=== PATIENT | male | born 1940 | race Caucasian/White ===

== ENCOUNTER 2016-02-17 17:38 | Inpatient (IN) | payer MEDICARE, OTHER ==
[2016-02-17] MEDS ORDERED: ALBUTEROL/IPRATROPIUM 2.5/0.5 MG 3 ML/EACH DOSE ONE (17:54)
[2016-02-17 18:09] LABS: VENOUS BLOOD GAS BASE EXCESS 2.9 mmol/L (-2.0-2.0); VENOUS BLOOD GAS HCO3 27.5 mmol/L (22.0-27.0)
[2016-02-17] MEDS ORDERED: LORAZEPAM 2 MG/ML 1ML SDV ONE ×2 (18:25→19:12)
[2016-02-17 18:28] LABS: ABSOLUTE NEUTROPHIL COUNT 5.8 K/mm3 (1.8-7.7); BASO % 0.4 % (0.2-1.0); EOS % 0.4 % (0.9-2.9); HEMATOCRIT 44.3 % (32.0-52.0); HEMOGLOBIN 13.9 gm/l (14.0-18.0); IMM NEUT% 0.2 % (0-1); LYMPH # 1.3 (1.0-4.8); LYMPH % 15.9 % (15-45); MEAN CELL VOLUME 91.9 fl (80.0-94.0); MEAN CORPUSCULAR HEMOGLOBIN 28.8 pg (27.0-31.0); MEAN CORPUSCULAR HGB CONC 31.4 g/dl (33.0-37.0); MEAN PLATELET VOLUME 9.6 fl (7.4-10.4); MONO # 0.9 (0.0-0.8); MONO % 11.6 % (4-12); NEUT % 71.5 % (43-75); PLATELET COUNT 179 K/mm3 (130-400); RED CELL DISTRIBUTION WIDTH 12.9 % (11.5-14.5)
[2016-02-17 18:29] LABS: ALB/GLOB RATIO 1.5 (>1.0); ALBUMIN 4.3 gm/dL (3.5-5.7); CALCIUM 9.2 mg/dL (8.6-10.3); MAGNESIUM 1.7 mg/dL (1.9-2.7)
[2016-02-17 18:31] LABS: TROPONIN I < 0.01 ng/ml (0.0-0.06)
[2016-02-17] MEDS ORDERED: METHYLPRED SOD SUCCINATE 125 MG VIAL ONE (18:51)
[2016-02-17] MEDS ORDERED: ALBUTEROL NEB 2.5 MG/3 ML VIAL.NEB NEB ONE (19:05)
[2016-02-17] MEDS ORDERED: MAGNESIUM SULFATE 1 G/100 ML 100 ML IV ONE ×2 (19:21→19:28)
[2016-02-17] MEDS ORDERED: PIPERACILLIN-TAZO PREMIX BAG 50 ML IV ONE (19:28)
[2016-02-17] MEDS ORDERED: FENTANYL 100 MCG/2 ML VIAL ONE (19:34)
--- NOTE | 2016-02-17 19:39 | RAD ---
CHEST-AP BEDSIDE COMPARISON: None HISTORY: Shortness of breath, fever and chills for 2 days, worsening today FINDINGS: Views: Frontal chest. Lungs: Asymmetric density in the lungs, greater on the right than the left, consisting of mixed interstitial and airspace pattern. In the left lung base, there are some scattered interstitial densities. Heart and vessels: Normal Trachea and bronchi: Normal Mediastinum and konrad: Normal Costophrenic sulci: Normal Chest wall and bones: Normal Upper abdomen: Normal. IMPRESSION: Bilateral infiltrates, greater on the right than the left.
[2016-02-17] MEDS ORDERED: VANCOMYCIN HCL 1.5 G in SODIUM CHLORIDE 0.9% 500 ML IV ONE (19:45)
[2016-02-17] MEDS ORDERED: ACETAMINOPHEN 650 MG SUP PR ONE (20:02)
[2016-02-17] MEDS ORDERED: ACETAMINOPHEN 325 MG SUP PR ONE (20:02)
[2016-02-17] MEDS ORDERED: MAGNESIUM HYDROXIDE 30 ML UDCUP PO PRN (20:15)
[2016-02-17] MEDS ORDERED: MENTHOL/CETYLPYRD 1 EACH LOZENGE PO PRN (20:15)
[2016-02-17] MEDS ORDERED: BISACODYL 10 MG SUP PR PRN (20:15)
[2016-02-17] MEDS ORDERED: VANCOMYCIN HCL 0 G in SODIUM CHLORIDE 0.9% 275 ML IV SCH (20:15)
[2016-02-17] MEDS ORDERED: BISACODYL 5 MG TABLET.EC PO PRN (20:15)
[2016-02-17] MEDS ORDERED: BLISTEX LIPSTICK 1 EACH TP PRN (20:15)
[2016-02-17 20:29] LABS: URINE BILIRUBIN NEGATIVE (NEGATIVE); URINE BLOOD TRACE (NEGATIVE); URINE GLUCOSE (UA) NEGATIVE (NEGATIVE); URINE LEUKOCYTE ESTERASE NEGATIVE (NEGATIVE); URINE NITRITE NEGATIVE (NEGATIVE); URINE PROTEIN TRACE (NEGATIVE); URINE UROBILINOGEN NORMAL (0-1 mg/dl)
[2016-02-17 20:34] LABS: URINE APPEARANCE SL CLOUDY; URINE COLOR YELLOW
[2016-02-17 20:43] LABS: URINE RBC 0-2 /hpf
[2016-02-17 20:55] LABS: URINE EPITHELIAL CELLS 0 /hpf; URINE WBC 0-2 /hpf
[2016-02-17 20:56] VITALS: BMI 34.0
[2016-02-17 20:56] LABS: URINE AMORPHOUS SEDIMENT MODERATE; URINE BACTERIA 0
[2016-02-17] MEDS: DOCUSATE SODIUM 100 MG CAPSULE PO SCH (21:18)
[2016-02-17] MEDS: ALBUTEROL/IPRATROPIUM 2.5/0.5 MG 3 ML/EACH DOSE IH SCH (21:25)
[2016-02-17] MEDS: AZITHROMYCIN 500 MG in SODIUM CHLORIDE 0.9% 250 ML IV SCH (22:19)
[2016-02-17] MEDS: ENOXAPARIN SODIUM 40 MG/0.4 ML SYRINGE SUB-Q SCH (22:34)
[2016-02-17] MEDS ORDERED: ACETAMINOPHEN 650 MG SUP PR PRN (22:38)
[2016-02-17] MEDS ORDERED: LORAZEPAM 2 MG/ML 1ML SDV IV PRN (22:40)
[2016-02-17] MEDS ORDERED: PUMP TUBING ONE (22:44)
[2016-02-17] MEDS ORDERED: PANTOPRAZOLE SODIUM 40 MG VIAL IV SCH (22:45)
[2016-02-17] MEDS: D5 1/2NS with 20 mEq KCL 1,000 ML IV SCH (22:56)
[2016-02-17] MEDS: CEFTRIAXONE 1 GRAM DUPLEX 1 G in Premix (D5W) 50 ml 1 EACH IV SCH (23:01)
[2016-02-18] MEDS ORDERED: PIPERACILLIN-TAZO PREMIX BAG 3.375 G in Premix (D5W) 50 ml 1 EACH IV SCH (01:30)
[2016-02-18] MEDS: METHYLPRED SOD SUCCINATE 125 MG VIAL IV SCH ×3 (02:16→19:55)
[2016-02-18 06:06] LABS: CALCIUM 8.2 mg/dL (8.6-10.3); MAGNESIUM 2.1 mg/dL (1.9-2.7)
--- NOTE | 2016-02-18 06:36 | HP ---
Emiliano [place] [id number] CHIEF COMPLAINT: Shortness of breath. HISTORY OF PRESENT ILLNESS: Patient is a 75-year-old male with advanced chronic obstructive pulmonary disease on home oxygen therapy and chronic steroid therapy who presented to [facility] Emergency Department by ambulance with a two day history of cough, fever, malaise, and dyspnea. His symptoms have progressed to the point that he sought medical attention. In the emergency department, he was stabilized. On positive pressure ventilation in the field and treated with Bi-PAP. I do not have a room saturation, but he was 93% on Bi-PAP when he arrived and tachycardic with a heart rate up to 131 beats per minute, tachypneic with a respiratory rate up to 47 breaths were minute, and febrile with a temperature up to 103. Workup showed evidence of pneumonia. He was referred to the hospitalist service. He was admitted to the intensive care unit due to concerns about his need for Bi-PAP therapy. The patient was sedated in the emergency department with lorazepam and Fentanyl. History is obtained from his daughter as the patient is not able to give much history due to his sedation and tachypnea. His daughter reports no documented fever at home and that his upper respiratory symptoms began with congestion and cough about two days ago. There has been no reports of any chest pains or palpitations. No nausea, vomiting, abdominal pain, diarrhea, or constipation. No headaches, fainting, blackouts, or seizures. No urinary complaints. No confusion. REVIEW OF SYSTEMS: Otherwise negative. PAST MEDICAL HISTORY: Significant for a prolonged hospitalization approximately 6 months ago at the [facility]. It is unclear, but he may have been on a ventilator. It sounds like he was hospitalized for 4 to 6 weeks. His daughter reports he has a history of a hiatal hernia and prostate cancer in remission. He has had advanced chronic obstructive pulmonary disease on chronic prednisone therapy and oxygen, but does not have a nebulizer at home. He has not had a follow up with a doctor since his discharge from the [facility] about six months ago, but has an appointment scheduled in the next month. His family denies any history of coronary artery disease or congestive heart failure. PAST SURGICAL HISTORY: Significant for some type of hernia repair. He also had a radical prostatectomy. ALLERGIES: He has no known drug allergies. CURRENT MEDICATIONS: Consist of: 1. Prednisone 5 mg by mouth every morning. 2. Trazodone 50 mg at bedtime as needed. 3. Spiriva 18 mcg inhaled daily. 4. Vasotec 20 mg by mouth daily. 5. Albuterol HFA inhaler 1 to 2 puffs every 4 hours as needed for wheezing. 6. Ranitidine 150 mg by mouth twice daily. 7. Symbicort 160/4.5 mcg inhaler two puffs inhaled twice daily. 8. Potassium chloride 10 mEq once daily. FAMILY HISTORY: Unknown. SOCIAL HISTORY: Patient lives with his , his daughter, and his son-in-law. He is generally independent with his activities of daily living. They moved from [place] about six months ago to be closer to family. He is a former smoker of approximately 40 pack years, he quit about 20 years ago. There is no history of alcohol or illicit drug use. He has four daughters. He has no primary care provider except the [facility] in [place]. Code status is documented on a POLST form which has no name. I reviewed the POLST orders with the patient's daughter who reports that based on discussion she has had with her father and family that he would like limited additional interventions and would not want to be on life support. He would not want to be fed with a feeding tube, and he would not resuscitation if he has a cardiac arrest. PHYSICAL EXAMINATION: VITAL SIGNS: Currently show a temperature down to 101.6, pulse down to 97, blood pressure 105/60, respirations 18, oxygen saturations are 94% on Venturi mask at 50% FIO2. Body mass index 34, weight is 107.6 kg. GENERAL: This is an obese male in severe respiratory distress. HEENT: Moist pink oral mucosa. NECK: Supple without lymphadenopathy, thyromegaly, or jugular venous distention. LUNGS: Diminished throughout with some bibasilar rhonchi and occasional wheezing. CARDIOVASCULAR: Reveals a regular tachycardia. No murmur. ABDOMEN: Obese, soft, nontender, nondistended with positive bowel sounds. EXTREMITIES: Show no peripheral edema. Dorsalis pedis pulses are 2+ bilaterally and equal. DIAGNOSTICS: Chest x-ray shows evidence of bilateral infiltrates, right greater than left, normal cardiac silhouette. LABORATORY STUDIES: CBC shows a white count of 8.1, hemoglobin of 13.9, and a platelet count of 179,000, normal differential. Lactate 0.9. Venous pH 7.43. Chemistry profile shows sodium of 130, potassium 4.4, carbon dioxide 28, BUN 14, creatinine 0.8, glucose 98, magnesium was 1.7 and he got some magnesium replacement in the emergency department. Cardiac enzymes are negative. Liver function tests are normal. Brain type natiuretic peptide is 9. Urine is slightly concentrated with a specific gravity of 1.020. Micro exam is unremarkable. Influenza serologies are negative. ASSESSMENT: The patient has acute respiratory failure on top of chronic respiratory failure with bacterial pneumonia. Community acquired organism unknown. He has a history of severe chronic obstructive pulmonary disease. He has gastroesophageal reflux disease which is stable and chronic essential hypertension which is stable. Initially he was treated with Zosyn and vancomycin in the emergency department as his initial history was that he had been recently hospitalized, but based on his hospitalization six months ago, I think he meets criteria for community acquired pneumonia and he will be treated with Rocephin and Zithromax. He has been admitted to the intensive care because of his need for Bi-PAP. He will be given Ativan if needed for sedation. Venous thromboembolism risk is moderate. Lovenox is prescribed for prophylaxis. Will place him on Protonix for gastritis prophylaxis and he is on high dose steroids in the form of Solu-Medrol. He will be given Combivent scheduled nebulizer treatments and albuterol as needed. He will be placed on maintenance fluids and will follow his electrolytes. Further treatment and recommendations will depend on his hospital course. JOB: [id number] CC: [facility]
[2016-02-18] MEDS: D5 1/2NS with 20 mEq KCL 1,000 ML IV SCH (07:17)
[2016-02-18] MEDS ORDERED: VANCOMYCIN HCL 1.25 G in SODIUM CHLORIDE 0.9% 250 ML IV SCH (08:00)
[2016-02-18] MEDS: ALBUTEROL/IPRATROPIUM 2.5/0.5 MG 3 ML/EACH DOSE IH SCH ×4 (08:26→19:19)
[2016-02-18] MEDS: SODIUM CHLORIDE 0.9% 1,000 ML IV SCH ×2 (10:02→18:07)
[2016-02-18] MEDS: DOCUSATE SODIUM 100 MG CAPSULE PO SCH ×3 (10:02→22:04)
--- NOTE | 2016-02-18 10:33 | PDOC43 ---
- Subjective Chief Complaint: shortness of breath Patient awake and alert, feeling much better. Coughing up brown mucus. Shortness of breath improved, fever resolved. Denies chest pain, abdominal pain , appetite is decreased Subjective: Reports Pain Tolerable, Reports Urinating Without Difficulty, Reports Cough, Denies Tolerating Diet Well, Denies Adequate Oral Intake, Denies Shortness of Breath, Denies Chest Pain, Denies Abdominal Pain, Denies Nausea - Objective Vital Signs Temperature 99.0 F 02/18/16 09:00 Pulse Rate 108 02/18/16 09:00 Respiratory Rate 22 02/18/16 09:00 Blood Pressure 128/92 02/18/16 09:00 O2 Saturation by Pulse Oximetry 93 02/18/16 09:00 Oxygen Delivery Method Nasal Cannula Oxygen Flow Rate 3 Intake and Output 02/16/16 02/17/16 02/18/16 23:59 23:59 23:59 Intake Total 325 1117 Output Total 460 1040 Balance -135 77 General: Alert, Oriented x3, Cooperative, No Acute Distress HEENT: Atraumatic, PERRLA, EOMI, Mucous membr. moist/pink Lungs: Clear to Auscultation Bilaterally, Diminished at Bases, Other (no crackle or wheeze) Cardiovascular: Regular Rate and Rhythm, Normal S1, Normal S2 Abdomen: Soft, Non-Distended, No Rigid, No Tenderness, No Rebounding Extremities: No Cyanosis, No Edema, No Tenderness Peripheral Pulses: Radial (L): 2+, Radial (R): 2+, Posterior Tibialis (L): 2+, Posterior Tibialis (R): 2+ Neurological: Normal Speech Psych/Mental Status: Normal Mood Laboratory 02/18/16 05:15 02/18/16 05:15 Estimated GFR 110 H Calcium 8.2 L Current Medications: Current meds reviewed in EMR. - Problems: Assessment/Plan (1) Respiratory failure Qualifiers: Chronicity: acute on chronic Status: Acute Assessment/Plan: COPD with 3 liters home oxygen use at baseline, with pneumonia requiring Bi-PAP overnight. Patient improved and is using home O2 requirements. (2) Pneumonia Qualifiers: Pneumonia type: due to unspecified organism Laterality: bilateral Lung location: unspecified part of lung Qualifier Code: (J18.9) Pneumonia, unspecified organism Status: Acute Assessment/Plan: Causing acute respiratory failure. Community acquired with multiple gram positive and gram negative species on sputum gram stain. On vanc, rocephin and azithromycin. Patient improving. (3) COPD (chronic obstructive pulmonary disease) Qualifiers: COPD type: unspecified COPD Qualifier Code: (J44.9) Chronic obstructive pulmonary disease, unspecified Status: Chronic Assessment/Plan: Baseline home oxygen use and steroid dependent. Improvement with Bi-Pap overnight (4) Hiatal hernia with GERD Status: Chronic Assessment/Plan: stable, PPI for steroid use
[2016-02-18] MEDS: ENOXAPARIN SODIUM 40 MG/0.4 ML SYRINGE SUB-Q SCH (21:44)
[2016-02-18] MEDS: AZITHROMYCIN 500 MG in SODIUM CHLORIDE 0.9% 250 ML IV SCH (21:45)
[2016-02-18] MEDS: CEFTRIAXONE 1 GRAM DUPLEX 1 G in Premix (D5W) 50 ml 1 EACH IV SCH (22:54)
[2016-02-19] MEDS: TRAZODONE HCL 50 MG TABLET PO PRN (00:55)
[2016-02-19] MEDS: METHYLPRED SOD SUCCINATE 125 MG VIAL IV SCH ×3 (03:29→20:08)
[2016-02-19] MEDS: SODIUM CHLORIDE 0.9% 1,000 ML IV SCH ×3 (03:57→21:58)
[2016-02-19] MEDS: BENZONATATE 100 MG CAPSULE PO PRN (07:29)
[2016-02-19] MEDS ORDERED: TRAZODONE HCL 50 MG TABLET PO PRN (07:42)
[2016-02-19] MEDS ORDERED: ALBUTEROL SULFATE MDI 60 PUFFS/INHALER IH PRN (07:42)
[2016-02-19] MEDS: ALBUTEROL/IPRATROPIUM 2.5/0.5 MG 3 ML/EACH DOSE IH SCH ×4 (08:28→20:12)
[2016-02-19] MEDS ORDERED: BUDESONIDE/FORMOTEROL 160/4.5 60 PUFFS/6 G INHALER IH SCH (09:00)
--- NOTE | 2016-02-19 09:25 | PDOC43 ---
- Subjective Chief Complaint: shortness of breath awake and alert, did not get any rest overnight. Subjective: Reports Pain Tolerable, Reports Tolerating Diet Well, Reports Urinating Without Difficulty, Reports Shortness of Breath, Reports Cough, Denies Chest Pain, Denies Abdominal Pain, Denies Nausea, Denies Vomiting - Objective Vital Signs Temperature 98.9 F 02/19/16 08:00 Pulse Rate 101 02/19/16 08:28 Respiratory Rate 22 02/19/16 08:28 Blood Pressure 148/80 02/19/16 08:00 O2 Saturation by Pulse Oximetry 90 02/19/16 08:28 Oxygen Delivery Method Nasal Cannula Oxygen Flow Rate 3 Intake and Output 02/17/16 02/18/16 02/19/16 23:59 23:59 23:59 Intake Total 325 2942 2028 Output Total 460 3240 1725 Balance -135 -298 303 General: Alert, Oriented x3, Mild Distress HEENT: Atraumatic, PERRLA, EOMI, Mucous membr. moist/pink Lungs: Clear to Auscultation Bilaterally, Other (shallow, no crackles or wheeze but coarse in bases, using accessory muscles) Cardiovascular: Regular Rate and Rhythm, Normal S1, Normal S2 Abdomen: Soft, Mild Distention, No Rigid, No Tenderness, No Rebounding Extremities: Edema, No Cyanosis, No Tenderness Neurological: Normal Speech Psych/Mental Status: Normal Mood Laboratory 02/19/16 05:30 02/19/16 05:30 Estimated GFR 131 H Current Medications: Current meds reviewed in EMR. - Problems: Assessment/Plan (1) Respiratory failure Qualifiers: Chronicity: acute on chronic Status: Acute Assessment/Plan: COPD with 3 liters home oxygen use at baseline, with pneumonia requiring Bi-PAP overnight. Patient improved and is using home O2 requirements. Slight bump in O2 requirements maybe due to activity this morning. Transitioning to PO medications (2) Pneumonia Qualifiers: Pneumonia type: due to unspecified organism Laterality: bilateral Lung location: unspecified part of lung Qualifier Code: (J18.9) Pneumonia, unspecified organism Status: Acute Assessment/Plan: Causing acute respiratory failure. Community acquired with multiple gram positive and gram negative species on sputum gram stain. On vanc, rocephin and azithromycin. Patient improving. (3) COPD (chronic obstructive pulmonary disease) Qualifiers: COPD type: unspecified COPD Qualifier Code: (J44.9) Chronic obstructive pulmonary disease, unspecified Status: Chronic Assessment/Plan: Baseline home oxygen use and steroid dependent. Improvement with Bi-Pap overnight Home medication use (4) Hiatal hernia with GERD Status: Chronic Assessment/Plan: stable, PPI for steroid use
[2016-02-19] MEDS: TIOTROPIUM BROMIDE 18 MCG 5 CAP/INHALER IH SCH (09:44)
[2016-02-19] MEDS: DOCUSATE SODIUM 100 MG CAPSULE PO SCH ×2 (09:45→21:02)
[2016-02-19] MEDS: PANTOPRAZOLE 40 MG TABLET DR PO SCH (09:45)
[2016-02-19] MEDS: POTASSIUM CHLORIDE 10 MEQ TAB.SR PO SCH (09:45)
[2016-02-19] MEDS: ENALAPRIL MALEATE 5 MG TABLET PO SCH (09:45)
[2016-02-19] MEDS: LEVOFLOXACIN 750 MG TABLET PO SCH (09:45)
[2016-02-19] MEDS: FLUTICASONE/SALMETEROL 500/50 14 PUFFS/DISK IH SCH ×2 (11:50→20:10)
[2016-02-19] MEDS: ALBUTEROL NEB 2.5 MG/3 ML VIAL.NEB IH PRN (17:34)
[2016-02-19] MEDS ORDERED: FUROSEMIDE 20 MG/2 ML VIAL IV ONE (20:34)
[2016-02-19] MEDS ORDERED: FUROSEMIDE 20 MG/2 ML VIAL ONE (20:37)
[2016-02-19] MEDS ORDERED: LORAZEPAM 2 MG/ML 1ML SDV IV PRN (20:46)
[2016-02-19] MEDS: ENOXAPARIN SODIUM 40 MG/0.4 ML SYRINGE SUB-Q SCH ×2 (20:54→23:37)
[2016-02-20] MEDS ORDERED: FUROSEMIDE 20 MG/2 ML VIAL IV ONE (01:13)
[2016-02-20] MEDS: METHYLPRED SOD SUCCINATE 125 MG VIAL IV SCH (04:11)
[2016-02-20] MEDS: ALBUTEROL/IPRATROPIUM 2.5/0.5 MG 3 ML/EACH DOSE IH SCH ×4 (07:46→20:26)
--- NOTE | 2016-02-20 08:04 | RAD ---
CHEST-AP BEDSIDE COMPARISON: Portable chest x-ray 02/17/2016 HISTORY: Respiratory distress. FINDINGS: Views: Frontal chest. Lungs: Progression of diffuse airspace infiltrate throughout the right lung and no change in the left lower lobe. Heart and vessels: Normal Trachea and bronchi: Normal Mediastinum and konrad: Normal Costophrenic sulci: Normal Chest wall and bones: Normal Upper abdomen: Normal. IMPRESSION: Progression of infiltrate/pneumonia in the right lung, unchanged in the left lower lobe.
[2016-02-20] MEDS: PANTOPRAZOLE 40 MG TABLET DR PO SCH (08:44)
[2016-02-20] MEDS: LEVOFLOXACIN 750 MG TABLET PO SCH (08:44)
[2016-02-20] MEDS: ENALAPRIL MALEATE 5 MG TABLET PO SCH (08:44)
[2016-02-20] MEDS: DOCUSATE SODIUM 100 MG CAPSULE PO SCH ×2 (08:44→20:54)
[2016-02-20] MEDS: POTASSIUM CHLORIDE 10 MEQ TAB.SR PO SCH (08:44)
[2016-02-20] MEDS: TIOTROPIUM BROMIDE 18 MCG 5 CAP/INHALER IH SCH (08:45)
[2016-02-20] MEDS: FLUTICASONE/SALMETEROL 500/50 14 PUFFS/DISK IH SCH ×2 (08:45→20:44)
[2016-02-20] MEDS ORDERED: PUMP TUBING ONE (10:42)
--- NOTE | 2016-02-20 10:46 | PDOC43 ---
- Subjective Chief Complaint: shortness of breath Required Bipap again overnight. Up with PT/OT this AM. Subjective: Reports Tolerating Diet Well, Reports Shortness of Breath, Denies Chest Pain, Denies Abdominal Pain, Denies Nausea, Denies Vomiting, Denies Fever , Denies Chills - Objective Vital Signs Temperature 98.4 F 02/20/16 07:56 Pulse Rate 110 02/20/16 07:56 Respiratory Rate 23 02/20/16 08:15 Blood Pressure 155/94 02/20/16 07:56 O2 Saturation by Pulse Oximetry 97 02/20/16 07:56 Oxygen Delivery Method Bi-PAP Oxygen Flow Rate 6 Intake and Output 02/19/16 02/20/16 02/21/16 06:59 06:59 06:59 Intake Total 4223 3613 Output Total 3925 3000 Balance 298 613 General: Alert, Oriented x3, Cooperative, No Acute Distress HEENT: Atraumatic Lungs: Other (Distant sounds, poor air movement all orantes B, but otherwise CTA. ) Cardiovascular: Regular Rate and Rhythm Abdomen: Soft, Normal Bowel Sounds, Non-Distended, No Tenderness Extremities: Normal Pulses, Other, No Edema Labs pending. Current Medications: Current meds reviewed in EMR. - Problems: Assessment/Plan (1) Pneumonia Qualifiers: Pneumonia type: due to unspecified organism Laterality: bilateral Lung location: unspecified part of lung Qualifier Code: (J18.9) Pneumonia, unspecified organism Status: Acute Assessment/Plan: POA, presumed bacterial with acute on chronic respiratory failure. Community acquired in context of advance O2 and prednisone dependent COPD. Worsened overnight requiring Bipap. CXR this AM with advancing pna R>L. Pt was taken off IV abx 02/18- will broaden abx to Zosyn/Levaquin. Con't steroids/nebs/ supportive care. All cx negative. Pt states recurrent x 3 in last 6 months but still no records from [facility]- will request again. (2) Respiratory failure Qualifiers: Chronicity: acute on chronic Status: Acute Assessment/Plan: COPD with 3 liters home oxygen use at baseline, with pneumonia requiring Bi-PAP overnight as above. (3) COPD (chronic obstructive pulmonary disease) Qualifiers: COPD type: unspecified COPD Qualifier Code: (J44.9) Chronic obstructive pulmonary disease, unspecified Status: Chronic Assessment/Plan: Baseline home oxygen use and steroid dependent. (4) Hiatal hernia with GERD Status: Chronic Assessment/Plan: Stable, PPI for steroid use. (5) HTN (hypertension) Qualifiers: Hypertension type: essential hypertension Qualifier Code: (I10) Essential (primary) hypertension Status: Chronic Assessment/Plan: Stable. Con't usual vasotec. VTE Prophylaxis: Lovenox. Disposition: Unknown. Additional Comments: Still no records from [facility]- will request again.
[2016-02-20] MEDS: SODIUM CHLORIDE 0.9% 100 ML IV PRN (10:51)
[2016-02-20] MEDS: LEVOFLOXACIN 500 MG/D5W 100 ML 500 MG in Premix (D5W) 100 ml 1 EACH IV SCH (10:51)
[2016-02-20 11:00] LABS: ABSOLUTE NEUTROPHIL COUNT 9.9 K/mm3 (1.8-7.7); BASO % 0.1 % (0.2-1.0); HEMATOCRIT 39.6 % (32.0-52.0); IMM NEUT # 0.1 K/mm3 (0-0.2); IMM NEUT% 0.5 % (0-1); LYMPH # 0.2 (1.0-4.8); LYMPH % 1.9 % (15-45); MEAN CELL VOLUME 89.8 fl (80.0-94.0); MEAN CORPUSCULAR HEMOGLOBIN 29.5 pg (27.0-31.0); MEAN CORPUSCULAR HGB CONC 32.8 g/dl (33.0-37.0); MEAN PLATELET VOLUME 9.4 fl (7.4-10.4); MONO # 0.8 (0.0-0.8); MONO % 7.4 % (4-12); NEUT % 90.1 % (43-75); PLATELET COUNT 185 K/mm3 (130-400); RED CELL DISTRIBUTION WIDTH 12.8 % (11.5-14.5)
[2016-02-20 11:26] LABS: ALB/GLOB RATIO 1.5 (>1.0); ALBUMIN 3.5 gm/dL (3.5-5.7); CALCIUM 8.8 mg/dL (8.6-10.3)
[2016-02-20] MEDS: PIPERACILLIN-TAZO PREMIX BAG 3.375 G in Premix (D5W) 50 ml 1 EACH IV SCH ×3 (12:02→23:54)
[2016-02-20] MEDS: METHYLPRED SOD SUCCINATE 40 MG VIAL IV SCH ×2 (12:05→20:43)
[2016-02-20 12:11] LABS: BAND 0 % (0-10); BASOPHIL 0 % (0-1); EOSINOPHIL 0 % (1-3); LYMPHOCYTE 1 % (15-45); MONOCYTE 3 % (4-12); NEUTROPHILS 96 % (43-75); TOTAL CELLS COUNTED 100
[2016-02-20 12:12] LABS: PLATELET ESTIMATE NORMAL (NORMAL)
[2016-02-20] MEDS: BENZONATATE 100 MG CAPSULE PO PRN ×2 (13:36→22:34)
[2016-02-20] MEDS: ENOXAPARIN SODIUM 40 MG/0.4 ML SYRINGE SUB-Q SCH ×2 (20:43→22:51)
[2016-02-21] MEDS: TRAZODONE HCL 50 MG TABLET PO PRN (00:59)
[2016-02-21] MEDS: ALBUTEROL NEB 2.5 MG/3 ML VIAL.NEB IH PRN (01:15)
[2016-02-21] MEDS: METHYLPRED SOD SUCCINATE 40 MG VIAL IV SCH ×3 (03:55→22:00)
[2016-02-21] MEDS: PIPERACILLIN-TAZO PREMIX BAG 3.375 G in Premix (D5W) 50 ml 1 EACH IV SCH ×4 (05:11→23:39)
[2016-02-21 05:37] LABS: HEMATOCRIT 39.1 % (32.0-52.0); HEMOGLOBIN 12.6 gm/l (14.0-18.0); MEAN CELL VOLUME 91.4 fl (80.0-94.0); MEAN CORPUSCULAR HEMOGLOBIN 29.4 pg (27.0-31.0); MEAN CORPUSCULAR HGB CONC 32.2 g/dl (33.0-37.0); RED CELL DISTRIBUTION WIDTH 12.8 % (11.5-14.5)
[2016-02-21] MEDS: ALBUTEROL/IPRATROPIUM 2.5/0.5 MG 3 ML/EACH DOSE IH SCH ×5 (06:35→20:01)
[2016-02-21] MEDS: DOCUSATE SODIUM 100 MG CAPSULE PO SCH ×2 (09:22→21:03)
[2016-02-21] MEDS: ENALAPRIL MALEATE 5 MG TABLET PO SCH (09:22)
[2016-02-21] MEDS: FLUTICASONE/SALMETEROL 500/50 14 PUFFS/DISK IH SCH ×2 (09:22→21:03)
[2016-02-21] MEDS: PANTOPRAZOLE 40 MG TABLET DR PO SCH (09:22)
[2016-02-21] MEDS: TIOTROPIUM BROMIDE 18 MCG 5 CAP/INHALER IH SCH (09:22)
[2016-02-21] MEDS: POTASSIUM CHLORIDE 10 MEQ TAB.SR PO SCH (09:22)
[2016-02-21] MEDS ORDERED: PUMP TUBING ONE (09:25)
[2016-02-21] MEDS: LEVOFLOXACIN 500 MG/D5W 100 ML 500 MG in Premix (D5W) 100 ml 1 EACH IV SCH (09:33)
[2016-02-21] MEDS: SODIUM CHLORIDE 0.9% 100 ML IV PRN (09:33)
--- NOTE | 2016-02-21 11:17 | PDOC43 ---
- Subjective Chief Complaint: shortness of breath Doing better. Anxious to go home. Did not require Bipap last night but did need mask. Still desats with minimal exertion. Subjective: Reports Tolerating Diet Well, Reports Shortness of Breath, Denies Chest Pain, Denies Abdominal Pain, Denies Nausea, Denies Vomiting, Denies Fever , Denies Chills - Objective Vital Signs Temperature 98 F 02/21/16 11:06 Pulse Rate 102 02/21/16 11:06 Respiratory Rate 18 02/21/16 11:06 Blood Pressure 168/94 02/21/16 11:06 O2 Saturation by Pulse Oximetry 96 02/21/16 11:06 Oxygen Delivery Method Nasal Cannula Oxygen Flow Rate 3 Intake and Output 02/20/16 02/21/16 02/22/16 06:59 06:59 06:59 Intake Total 3613 2318 210 Output Total 3000 1375 Balance 613 943 210 General: Alert, Oriented x3, Cooperative, No Acute Distress HEENT: Atraumatic Lungs: Other (Poor air movements all orantes B. Otherwise CTA.) Cardiovascular: Regular Rate and Rhythm Abdomen: Soft, Normal Bowel Sounds, No Tenderness Extremities: No Edema Laboratory 02/21/16 05:20 02/21/16 05:20 02/21/16 02/20/16 05:20 10:55 RBC 4.28 L MCHC 32.2 L Estimated GFR 110 H 94 H Total Protein 5.9 L Current Medications: Current meds reviewed in EMR. - Problems: Assessment/Plan (1) Pneumonia Qualifiers: Pneumonia type: due to unspecified organism Laterality: bilateral Lung location: unspecified part of lung Qualifier Code: (J18.9) Pneumonia, unspecified organism Status: Acute Assessment/Plan: POA, presumed bacterial with acute on chronic respiratory failure. Community acquired in context of advance O2 and prednisone dependent COPD. Worsened overnight on 02/19/16 requiring Bipap. CXR AM 02/20/16 with advancing pna R>L. Broaden abx to Zosyn/Levaquin on 02/20/16. Con't steroids/nebs/supportive care. All cx negative. Received records from [facility]- pt with chronic ground glass opacities in R lung felt to be d/t atypical pna and/or aspiration. Had extensive pulm workup in 08/24 including Bronch/BAL. (2) Respiratory failure Qualifiers: Chronicity: acute on chronic Status: Acute Assessment/Plan: Acute on chronic. Severe bullous emphysema with baseline O2 need 3 liters home oxygen use at rest and 4-5 with any exertion. (3) COPD (chronic obstructive pulmonary disease) Qualifiers: COPD type: unspecified COPD Qualifier Code: (J44.9) Chronic obstructive pulmonary disease, unspecified Status: Chronic Assessment/Plan: Severe bullous emphysema with baseline home oxygen use as above and steroid dependent as well. (4) Hiatal hernia with GERD Status: Chronic Assessment/Plan: Stable, PPI for steroid use. (5) HTN (hypertension) Qualifiers: Hypertension type: essential hypertension Qualifier Code: (I10) Essential (primary) hypertension Status: Chronic Assessment/Plan: Stable. Con't usual vasotec. VTE Prophylaxis: Lovenox. Disposition: Unknown. Additional Comments: S
[2016-02-21] MEDS: SODIUM CHLORIDE 0.65% NASAL SPRAY 45 ML BOT NS PRN (14:11)
[2016-02-21] MEDS: LORAZEPAM 0.5 MG TABLET PO PRN ×2 (14:12→21:03)
[2016-02-21] MEDS: BENZONATATE 100 MG CAPSULE PO PRN (14:15)
[2016-02-21] MEDS: ACETAMINOPHEN 325 MG TABLET PO PRN (16:05)
[2016-02-21] MEDS: GUAIFENESIN 600 MG TABLET.DR PO SCH (21:03)
[2016-02-21] MEDS: ENOXAPARIN SODIUM 40 MG/0.4 ML SYRINGE SUB-Q SCH (21:03)
[2016-02-22] MEDS: LORAZEPAM 0.5 MG TABLET PO PRN ×3 (02:00→21:35)
[2016-02-22] MEDS: METHYLPRED SOD SUCCINATE 40 MG VIAL IV SCH ×3 (05:34→21:34)
[2016-02-22] MEDS: PIPERACILLIN-TAZO PREMIX BAG 3.375 G in Premix (D5W) 50 ml 1 EACH IV SCH ×4 (05:39→23:48)
[2016-02-22] MEDS: ALBUTEROL NEB 2.5 MG/3 ML VIAL.NEB IH PRN (05:52)
--- NOTE | 2016-02-22 08:02 | RAD ---
Name: JENIFFER LYN Exam: Single view chest Comparison: 02/20/2016 Clinical history: Pneumonia Findings: single view chest med. Heart, mediastinum and hilar structures normal. There is some minimal left basilar scar or atelectasis. There is fairly diffuse patchy infiltrate in the right lung which slightly decreased in density. There is trace right effusion. There is no pneumothorax. Regional skeleton is unremarkable. Impression: Mild diffuse right sided pneumonia with mild interval radiographic improvement when compared to the prior
[2016-02-22] MEDS: SODIUM CHLORIDE 0.65% NASAL SPRAY 45 ML BOT NS PRN (08:25)
[2016-02-22] MEDS: ALBUTEROL/IPRATROPIUM 2.5/0.5 MG 3 ML/EACH DOSE IH SCH ×4 (08:47→19:22)
[2016-02-22] MEDS: ENALAPRIL MALEATE 5 MG TABLET PO SCH (09:30)
[2016-02-22] MEDS: POTASSIUM CHLORIDE 10 MEQ TAB.SR PO SCH (09:30)
[2016-02-22] MEDS: FLUTICASONE/SALMETEROL 500/50 14 PUFFS/DISK IH SCH ×2 (09:30→21:43)
[2016-02-22] MEDS: DOCUSATE SODIUM 100 MG CAPSULE PO SCH ×2 (09:30→21:34)
[2016-02-22] MEDS: BENZONATATE 100 MG CAPSULE PO PRN (09:30)
[2016-02-22] MEDS: GUAIFENESIN 600 MG TABLET.DR PO SCH ×2 (09:30→21:33)
[2016-02-22] MEDS: PANTOPRAZOLE 40 MG TABLET DR PO SCH (09:30)
[2016-02-22] MEDS: TIOTROPIUM BROMIDE 18 MCG 5 CAP/INHALER IH SCH (09:31)
[2016-02-22] MEDS: ACETAMINOPHEN 325 MG TABLET PO PRN ×2 (09:33→22:41)
[2016-02-22] MEDS ORDERED: PUMP TUBING ONE (10:25)
[2016-02-22] MEDS: LEVOFLOXACIN 500 MG/D5W 100 ML 500 MG in Premix (D5W) 100 ml 1 EACH IV SCH (10:31)
[2016-02-22] MEDS: SODIUM CHLORIDE 0.9% 100 ML IV PRN (10:31)
[2016-02-22] MEDS ORDERED: ENALAPRIL MALEATE 5 MG TABLET PO ONE (11:33)
--- NOTE | 2016-02-22 13:02 | PDOC43 ---
- Subjective Chief Complaint: shortness of breath slept well last night without Bipap Subjective: Reports Shortness of Breath (chronic but improved from admit), Denies Chest Pain, Denies Fever - Objective Vital Signs Temperature 98 F 02/22/16 08:25 Pulse Rate 108 02/22/16 08:47 Respiratory Rate 24 02/22/16 09:30 Blood Pressure 143/110 02/22/16 08:25 O2 Saturation by Pulse Oximetry 88 02/22/16 12:44 Oxygen Delivery Method Nasal Cannula Oxygen Flow Rate 4 Intake and Output 02/21/16 02/22/16 02/23/16 06:59 06:59 06:59 Intake Total 2318 1350 502 Output Total 1375 1675 Balance 943 -325 502 General: Alert, Oriented x3, Cooperative, Moderate Distress HEENT: Mucous membr. moist/pink Lungs: Diminished at Bases (with occ wheezes) Cardiovascular: Regular Rate and Rhythm Abdomen: Soft, Normal Bowel Sounds, Non-Distended, No Tenderness Extremities: No Edema Laboratory 02/21/16 05:20 02/21/16 05:20 Current Medications: Current meds reviewed in EMR. - Problems: Assessment/Plan (1) Pneumonia Qualifiers: Pneumonia type: due to unspecified organism Laterality: bilateral Lung location: unspecified part of lung Qualifier Code: (J18.9) Pneumonia, unspecified organism Status: Acute Assessment/Plan: POA, presumed bacterial with acute on chronic respiratory failure. Community acquired in context of advance O2 and prednisone dependent COPD. Worsened overnight on 02/19/16 requiring Bipap. CXR AM 02/20/16 with advancing pna R>L. Broaden abx to Zosyn/Levaquin on 02/20/16. Cont. steroids/nebs/supportive care. All cx negative. [facility]- pt with chronic ground glass opacities in R lung felt to be d/t atypical pna and/or aspiration. Had extensive pulm workup in 08/24 including Bronch/BAL. Anticipate discharge in 1-2 days on oral augmentin and levaquin with steroid taper, Will stop Solu-Medrol and start Prednisone in am. (2) Respiratory failure Qualifiers: Chronicity: acute on chronic Status: Acute Assessment/Plan: Acute on chronic. Severe bullous emphysema with baseline O2 need 3 liters home oxygen use at rest and 4-5 with any exertion. (3) COPD (chronic obstructive pulmonary disease) Qualifiers: COPD type: unspecified COPD Qualifier Code: (J44.9) Chronic obstructive pulmonary disease, unspecified Status: Chronic Assessment/Plan: Severe bullous emphysema with baseline home oxygen use as above and steroid dependent as well. (4) HTN (hypertension) Qualifiers: Hypertension type: essential hypertension Qualifier Code: (I10) Essential (primary) hypertension Status: Chronic Assessment/Plan: Elevated, will increase usual vasotec. (5) Hiatal hernia with GERD Status: Chronic Assessment/Plan: Stable, PPI for steroid use. VTE Prophylaxis: Lovenox. Disposition: Home in 1-2 days.
[2016-02-22] MEDS ORDERED: SODIUM CHLORIDE 0.9% FLUSH 10 ML ONE (15:20)
[2016-02-22] MEDS ORDERED: IV START KIT ONE (15:20)
[2016-02-22] MEDS: ENOXAPARIN SODIUM 40 MG/0.4 ML SYRINGE SUB-Q SCH (21:33)
[2016-02-23] MEDS: ALBUTEROL NEB 2.5 MG/3 ML VIAL.NEB IH PRN (00:37)
[2016-02-23] MEDS: LORAZEPAM 0.5 MG TABLET PO PRN ×2 (03:02→22:14)
[2016-02-23] MEDS: PIPERACILLIN-TAZO PREMIX BAG 3.375 G in Premix (D5W) 50 ml 1 EACH IV SCH (05:12)
[2016-02-23] MEDS: METHYLPRED SOD SUCCINATE 40 MG VIAL IV SCH (05:12)
[2016-02-23] MEDS: AMLODIPINE BESYLATE 5 MG TABLET PO SCH ×2 (07:17→08:24)
[2016-02-23] MEDS ORDERED: FUROSEMIDE 20 MG TABLET PO ONE (07:33)
[2016-02-23] MEDS: ENALAPRIL MALEATE 10 MG TABLET PO SCH (08:22)
[2016-02-23] MEDS: GUAIFENESIN 600 MG TABLET.DR PO SCH ×2 (08:22→20:34)
[2016-02-23] MEDS: PREDNISONE 10 MG TABLET PO SCH (08:22)
[2016-02-23] MEDS: POTASSIUM CHLORIDE 10 MEQ TAB.SR PO SCH (08:23)
[2016-02-23] MEDS: TIOTROPIUM BROMIDE 18 MCG 5 CAP/INHALER IH SCH (08:23)
[2016-02-23] MEDS: DOCUSATE SODIUM 100 MG CAPSULE PO SCH ×2 (08:23→20:34)
[2016-02-23] MEDS: PANTOPRAZOLE 40 MG TABLET DR PO SCH (08:23)
[2016-02-23] MEDS: FLUTICASONE/SALMETEROL 500/50 14 PUFFS/DISK IH SCH ×2 (08:24→20:33)
[2016-02-23] MEDS: ALBUTEROL/IPRATROPIUM 2.5/0.5 MG 3 ML/EACH DOSE IH SCH ×4 (08:32→19:13)
[2016-02-23] MEDS ORDERED: PREDNISONE 20 MG TABLET PO SCH (09:00)
[2016-02-23] MEDS: ACETAMINOPHEN 325 MG TABLET PO PRN (09:03)
--- NOTE | 2016-02-23 10:05 | PDOC43 ---
- Subjective Chief Complaint: shortness of breath Subjective: Reports Shortness of Breath (slowly improving), Denies Chest Pain, Denies Fever - Objective Vital Signs Temperature 98.3 F 02/23/16 06:46 Pulse Rate 90 02/23/16 06:46 Respiratory Rate 26 02/23/16 07:26 Blood Pressure 175/108 02/23/16 06:46 O2 Saturation by Pulse Oximetry 93 02/23/16 06:46 Oxygen Delivery Method Nasal Cannula Oxygen Flow Rate 3 Intake and Output 02/22/16 02/23/16 02/24/16 06:59 06:59 06:59 Intake Total 1350 1837 100 Output Total 1675 1375 250 Balance -325 462 -150 General: Alert, Oriented x3, Cooperative, Mild Distress HEENT: Mucous membr. moist/pink Lungs: Diminished at Bases, Other (occ wheezes) Cardiovascular: Regular Rate and Rhythm Abdomen: Soft, Normal Bowel Sounds, Non-Distended, No Tenderness Extremities: No Edema Skin: Warm, Dry, Intact Laboratory 02/21/16 05:20 02/21/16 05:20 Current Medications: Current meds reviewed in EMR. - Problems: Assessment/Plan (1) Pneumonia Qualifiers: Pneumonia type: due to unspecified organism Laterality: bilateral Lung location: unspecified part of lung Qualifier Code: (J18.9) Pneumonia, unspecified organism Status: Acute Assessment/Plan: POA, presumed bacterial with acute on chronic respiratory failure. Community acquired in context of advance O2 and prednisone dependent COPD. Worsened overnight on 02/19/16 requiring Bipap. CXR AM 02/20/16 with advancing pna R>L. Broaden abx to Zosyn/Levaquin on 02/20/16. Cont. steroids/nebs/supportive care. All cx negative. [facility] with [facility] ground glass opacities in R lung felt to be d/t atypical pna and/or aspiration. Had extensive pulm workup in 08/24 including Bronch/BAL. Anticipate discharge in 1-2 days on oral augmentin and levaquin with steroid taper, Will keep overnight on oral augmentin and oral levaquin with PO prednisone and if stable, consider discharge in am. (2) Respiratory failure Qualifiers: Chronicity: acute on chronic Status: Acute Assessment/Plan: has not need Bipap in 48hrs. Acute on chronic. Severe bullous emphysema with baseline O2 need 3 liters home oxygen use at rest and 4-5 with any exertion. (3) COPD (chronic obstructive pulmonary disease) Qualifiers: COPD type: unspecified COPD Qualifier Code: (J44.9) Chronic obstructive pulmonary disease, unspecified Status: Chronic Assessment/Plan: Severe bullous emphysema with baseline home oxygen use as above and steroid dependent as well. (4) HTN (hypertension) Qualifiers: Hypertension type: essential hypertension Qualifier Code: (I10) Essential (primary) hypertension Status: Chronic Assessment/Plan: BP markedly elevated despite increased dose of Vasotec, suspecyt due to mineralocorticoid effect of high dose steroids, changed to PO prednisone yesterday, adding Norvasc today with PO lasix times one. (5) Hiatal hernia with GERD Status: Chronic Assessment/Plan: Stable, PPI for steroid use. VTE Prophylaxis: Lovenox. Disposition: Home in 1-2 days. Additional Comments: S
[2016-02-23] MEDS: LEVOFLOXACIN 250 MG TABLET PO SCH (11:03)
[2016-02-23] MEDS: AMOX 875 MG/CLAV 125 MG 1 EACH TABLET PO SCH ×2 (11:03→20:34)
[2016-02-23] MEDS ORDERED: AMLODIPINE BESYLATE 5 MG TABLET PO ONE (14:49)
[2016-02-23] MEDS: ENOXAPARIN SODIUM 40 MG/0.4 ML SYRINGE SUB-Q SCH (21:10)
[2016-02-24] MEDS: LORAZEPAM 0.5 MG TABLET PO PRN ×4 (01:41→15:48)
[2016-02-24 06:17] LABS: ABSOLUTE NEUTROPHIL COUNT 9.3 K/mm3 (1.8-7.7); BASO # 0.1 K/mm3 (0.0-0.2); BASO % 0.7 % (0.2-1.0); EOS # 0.1 (0.0-0.5); EOS % 0.7 % (0.9-2.9); HEMATOCRIT 42.2 % (32.0-52.0); HEMOGLOBIN 13.9 gm/l (14.0-18.0); IMM NEUT # 0.4 K/mm3 (0-0.2); IMM NEUT% 3.5 % (0-1); LYMPH # 0.8 (1.0-4.8); LYMPH % 6.9 % (15-45); MEAN CELL VOLUME 88.8 fl (80.0-94.0); MEAN CORPUSCULAR HEMOGLOBIN 29.3 pg (27.0-31.0); MEAN CORPUSCULAR HGB CONC 32.9 g/dl (33.0-37.0); MEAN PLATELET VOLUME 10.8 fl (7.4-10.4); MONO # 1.1 (0.0-0.8); MONO % 9.2 % (4-12); PLATELET COUNT 220 K/mm3 (130-400); RED CELL DISTRIBUTION WIDTH 12.6 % (11.5-14.5)
[2016-02-24 06:34] LABS: CALCIUM 10.5 mg/dL (8.6-10.3)
[2016-02-24] MEDS: ACETAMINOPHEN 325 MG TABLET PO PRN (07:00)
[2016-02-24] MEDS: ALBUTEROL/IPRATROPIUM 2.5/0.5 MG 3 ML/EACH DOSE IH SCH (07:33)
[2016-02-24] MEDS: PANTOPRAZOLE 40 MG TABLET DR PO SCH (08:05)
[2016-02-24] MEDS: DOCUSATE SODIUM 100 MG CAPSULE PO SCH (08:05)
[2016-02-24] MEDS: ENALAPRIL MALEATE 10 MG TABLET PO SCH (08:06)
[2016-02-24] MEDS: POTASSIUM CHLORIDE 10 MEQ TAB.SR PO SCH (08:06)
[2016-02-24] MEDS: LEVOFLOXACIN 250 MG TABLET PO SCH (08:06)
[2016-02-24] MEDS: PREDNISONE 10 MG TABLET PO SCH (08:06)
[2016-02-24] MEDS: AMOX 875 MG/CLAV 125 MG 1 EACH TABLET PO SCH ×2 (08:07→20:35)
[2016-02-24] MEDS: GUAIFENESIN 600 MG TABLET.DR PO SCH ×3 (08:07→20:35)
[2016-02-24] MEDS ORDERED: AMLODIPINE BESYLATE 5 MG TABLET PO SCH (09:00)
[2016-02-24] MEDS: TIOTROPIUM BROMIDE 18 MCG 5 CAP/INHALER IH SCH (10:25)
[2016-02-24] MEDS: FLUTICASONE/SALMETEROL 500/50 14 PUFFS/DISK IH SCH ×2 (10:27→20:35)
[2016-02-24] MEDS ORDERED: LORAZEPAM 1 MG TABLET PO ONE (10:28)
--- NOTE | 2016-02-24 10:42 | PDOC43 ---
- Subjective Chief Complaint: shortness of breath RN reports ongoing dyspnea, sats down to upper 70s, but responds to increase in O2. Pt now asking about resuming Bipap. Has been anxious, getting ativan, but actually briefly went to sleep after increase in O2. Pt reports he can't cough anything up. Still feeling dyspneic, notes some chest pain with cough, rad to back. No other c/o currently. - Objective Vital Signs Temperature 97.6 F 02/24/16 07:50 Pulse Rate 99 02/24/16 07:50 Respiratory Rate 22 02/24/16 07:50 Blood Pressure 139/108 02/24/16 07:50 O2 Saturation by Pulse Oximetry 90 02/24/16 07:50 Oxygen Delivery Method Nasal Cannula Oxygen Flow Rate 3 Vital Signs Last 12 Hours Temp Pulse Resp BP Pulse Ox 02/24/16 07:50 97.6 F 99 22 139/108 90 02/24/16 07:33 99 22 91 02/24/16 07:00 30 02/24/16 04:15 26 02/24/16 01:53 98 F 94 26 167/115 92 02/23/16 22:49 98 F 93 24 137/101 97 Intake and Output 02/22/16 02/23/16 02/24/16 23:59 23:59 23:59 Intake Total 1317 2320 600 Output Total 1325 2600 150 Balance -8 -280 450 General: Alert, Moderate Distress HEENT: Atraumatic Lungs: Other (Air movement fair bilat. Not wheezing, no crackles, but diminished bilat, anterior and posteriorly.) Cardiovascular: Regular Rate and Rhythm Abdomen: Soft, Normal Bowel Sounds, Non-Distended, No Tenderness, No Rebounding Extremities: No Edema, No Tenderness Neurological: Normal Speech Psych/Mental Status: Anxious (sl anxious) Laboratory 02/24/16 05:30 02/24/16 05:30 02/24/16 05:30 MCHC 32.9 L Anion Gap 7 L Estimated GFR 131 H Calcium 10.5 H % Immature Granulocyt 3.5 H Current Medications: Current meds reviewed in EMR. Active Medications Acetaminophen (Tylenol) 650 mg PO Q6H PRN PRN Reason: Pain or Temperature > 100.5 F Last Admin: 02/24/16 07:00 Dose: 650 mg Albuterol Sulfate (Ventolin Inhalation Solution (Dose)) 2.5 mg IH Q1H PRN PRN Reason: Wheezing Last Admin: 02/23/16 00:37 Dose: 2.5 mg Albuterol Sulfate (Ventolin Hfa Mdi) 1 - 2 puffs IH Q4HP PRN PRN Reason: Wheezing Albuterol/Ipratropium (Duoneb) 3 ml IH 08,12,16,20 [facility] Last Admin: 02/24/16 07:33 Dose: 3 ml Amlodipine Besylate (Norvasc) 10 mg PO QAM [facility] Last Admin: 02/24/16 08:06 Dose: 10 mg Amoxicillin/Clavulanate Potassium (Augmentin-875) 1 each PO BID [facility] Last Admin: 02/24/16 08:07 Dose: 1 each Benzocaine/Menthol (Cepacol) 1 each PO PRN PRN PRN Reason: Sore Throat Benzonatate (Tessalon Perles) 200 mg PO TID PRN PRN Reason: Cough Last Admin: 02/22/16 09:30 Dose: 200 mg Bisacodyl (Dulcolax) 10 mg [place] DAILY PRN PRN Reason: Constipation Bisacodyl (Dulcolax) 5 mg PO DAILY PRN PRN Reason: Constipation Docusate Sodium (Colace) 100 mg PO BID [facility] Last Admin: 02/24/16 08:05 Dose: 100 mg Enalapril Maleate (Vasotec) 40 mg PO DAILY [facility] Last Admin: 02/24/16 08:06 Dose: 40 mg Enoxaparin Sodium (Lovenox) 40 mg SUB-Q Q24H [facility] Last Admin: 02/23/16 21:10 Dose: 40 mg Guaifenesin (Mucinex) 1,200 mg PO BID [facility] Last Admin: 02/24/16 08:07 Dose: 1,200 mg Sodium Chloride (Sodium Chloride 0.9%) 100 mls @ 25 mls/hr IV PRN PRN PRN Reason: Flush Last Admin: 02/22/16 10:31 Dose: 25 mls/hr Levofloxacin (Levaquin) 500 mg PO DAILY [facility] Last Admin: 02/24/16 08:06 Dose: 500 mg Lorazepam (Ativan) 0.5 mg PO Q4H PRN PRN Reason: Anxiety Last Admin: 02/24/16 08:06 Dose: 0.5 mg Magnesium Hydroxide (Milk Of Magnesia) 30 ml PO DAILY PRN PRN Reason: Constipation Pantoprazole Sodium (Protonix) 40 mg PO DAILY [facility] Last Admin: 02/24/16 08:05 Dose: 40 mg Petrolatum/Paraffin/Mineral Oil (Blistex) 1 each TP PRN PRN PRN Reason: Dry and/or chapped lips Last Admin: 02/21/16 14:12 Dose: 1 applic Potassium Chloride (K-Dur) 10 meq PO DAILY [facility] Last Admin: 02/24/16 08:06 Dose: 10 meq Prednisone (Prednisone) 30 mg PO DAILY [facility] Last Admin: 02/24/16 08:06 Dose: 30 mg Fluticasone/Salmeterol (Advair 500/50 Diskus) 1 puff IH BID [facility] Last Admin: 02/23/16 20:33 Dose: 1 puffs Sodium Chloride (Normal Saline 10ml Flush) 10 - 50 ml IV PRN PRN PRN Reason: IV Flush Last Admin: 02/22/16 17:15 Dose: 10 ml Sodium Chloride (Normal Saline 10ml Flush) 10 ml IV Q8HR [facility] Last Admin: 02/24/16 08:08 Dose: 10 ml Sodium Chloride (Saline 0.65% Nasal [place]) 0 applic NS Q2H PRN PRN Reason: Congestion Last Admin: 02/22/16 08:25 Dose: 1 each Tiotropium [place] (Spiriva Handihaler) 1 cap IH DAILY [facility] Last Admin: 02/23/16 08:23 Dose: 1 puffs - Problems: Assessment/Plan (1) Pneumonia Qualifiers: Pneumonia type: due to unspecified organism Laterality: bilateral Lung location: unspecified part of lung Qualifier Code: (J18.9) Pneumonia, unspecified organism Status: Acute Assessment/Plan: POA, presumed bacterial with acute on chronic respiratory failure. Community acquired in context of advance O2 and prednisone dependent COPD. abx revised to Zosyn/Levaquin on 02/20/16. All cx negative. Now on on oral augmentin and oral levaquin with PO prednisone [facility] with chronic ground glass opacities in R lung felt to be d/t atypical pna and/or aspiration. Had extensive pulm workup in 08/24 including Bronch/BAL. (2) Respiratory failure Qualifiers: Chronicity: acute on chronic Status: Acute Assessment/Plan: Acute on chronic. Severe bullous emphysema with baseline O2 need 3 liters home oxygen use at rest and 4-5 with any exertion. Considering return to IMCU status for possible resumption of Bipap Anxiety also playing a role in respiratory status, consider further ativan/ morphine. Previous BNP and troponin normal. Consider CT of chest. (3) COPD (chronic obstructive pulmonary disease) Qualifiers: COPD type: unspecified COPD Qualifier Code: (J44.9) Chronic obstructive pulmonary disease, unspecified Status: Chronic Assessment/Plan: Severe bullous emphysema with baseline home oxygen use as above and steroid dependent as well. (4) HTN (hypertension) Qualifiers: Hypertension type: essential hypertension Qualifier Code: (I10) Essential (primary) hypertension Status: Chronic Assessment/Plan: BP markedly elevated despite increased dose of Vasotec, suspect due to mineralocorticoid effect of high dose steroids, changed to PO prednisone, added Norvasc BP improved today (5) Hiatal hernia with GERD Status: Chronic Assessment/Plan: Stable, PPI for steroid use. VTE Prophylaxis: Lovenox. Disposition: hope to return to home once stable respiratory-jones.
[2016-02-24] MEDS ORDERED: LORAZEPAM 0.5 MG TABLET PO ONE (10:45)
[2016-02-24] MEDS ORDERED: ALBUTEROL/IPRATROPIUM 2.5/0.5 MG 3 ML/EACH DOSE ONE (12:03)
--- NOTE | 2016-02-24 12:05 | CT ---
Exam: CT chest without contrast COMPARISON: Radiographs dated 02/22/2016, 02/20/2016 and 02/17/2016 INDICATION: COPD, emphysema, pneumonia. TECHNIQUE: CT examination of the chest was obtained without contrast. FINDINGS: Examination is limited due to motion artifact, as patient was unable to hold his breath for the exam. There is severe emphysema, with pronounced bullous changes within the superior segment of the left upper lobe. Mild mucous plugging is suggested within the left lower lobe where there is minor atelectasis. There is a small focal opacity within the subpleural right lower lobe which could reflect atelectasis or small infiltrate. No additional focal consolidation is identified. There is no significant mediastinal or hilar lymphadenopathy by size criteria. There is no pleural or pericardial effusion. The main pulmonary artery is enlarged reflecting pulmonary hypertension. Coronary artery calcifications are appreciated. Limited evaluation of the upper abdomen demonstrates an incompletely visualized abdominal aortic aneurysm which measures at least 5 cm in diameter. Vertebral compression fractures are seen from T6 through T8 which appear chronic. No worrisome lytic or blastic osseous lesion is identified. IMPRESSION: 1. Minor subpleural opacity within the right lower lobe which could reflect a small focus of pneumonia versus atelectasis. 2. The opacity within the right upper lobe described on plain radiographs is related to artifact (rather than airspace disease/pneumonia), secondary to combination of overlying vascular structures related to rotation on the exam and the asymmetric lucency within the left lung secondary to bullous changes. 3. Incompletely visualized abdominal aortic aneurysm which measures at least 5.0 cm in diameter. 4. Severe emphysema with asymmetric bullous changes on the left. Pulmonary artery hypertension is noted. 5. Chronic compression fractures T6-T8.
[2016-02-24] MEDS: ALBUTEROL/IPRATROPIUM 2.5/0.5 MG 3 ML/EACH DOSE NEB SCH ×3 (12:10→19:17)
[2016-02-24] MEDS ORDERED: MAGNESIUM HYDROXIDE 30 ML UDCUP PO PRN (13:25)
[2016-02-24] MEDS ORDERED: BENZONATATE 100 MG CAPSULE PO PRN (13:25)
[2016-02-24] MEDS ORDERED: BISACODYL 5 MG TABLET.EC PO PRN (13:25)
[2016-02-24] MEDS ORDERED: MENTHOL/CETYLPYRD 1 EACH LOZENGE PO PRN (13:25)
[2016-02-24] MEDS ORDERED: BLISTEX LIPSTICK 1 EACH TP PRN (13:25)
[2016-02-24] MEDS ORDERED: PANTOPRAZOLE SODIUM 20 MG TABLET.DR PO SCH (13:30)
[2016-02-24] MEDS ORDERED: ENOXAPARIN SODIUM 40 MG/0.4 ML SYRINGE SUB-Q SCH (13:30)
[2016-02-24] MEDS ORDERED: SODIUM CHLORIDE 0.9% FLUSH 10 ML ONE ×2 (15:51→20:27)
[2016-02-24] MEDS: MORPHINE SULFATE 2 MG/ML SYRINGE IV PRN ×2 (15:56→23:15)
[2016-02-24] MEDS ORDERED: ALBUTEROL NEB 2.5 MG/3 ML VIAL.NEB NEB ONE (23:01)
[2016-02-24] MEDS ORDERED: ALBUTEROL NEB 2.5 MG/3 ML VIAL.NEB NEB PRN (23:02)
[2016-02-24] MEDS: ALBUTEROL NEB 2.5 MG/3 ML VIAL.NEB IH PRN (23:04)
[2016-02-25] MEDS: LORAZEPAM 0.5 MG TABLET PO PRN (02:44)
[2016-02-25 06:04] LABS: ABSOLUTE NEUTROPHIL COUNT 7.3 K/mm3 (1.8-7.7); BASO # 0.1 K/mm3 (0.0-0.2); BASO % 0.7 % (0.2-1.0); EOS # 0.1 (0.0-0.5); EOS % 1.1 % (0.9-2.9); HEMATOCRIT 39.1 % (32.0-52.0); HEMOGLOBIN 12.9 gm/l (14.0-18.0); IMM NEUT # 0.4 K/mm3 (0-0.2); IMM NEUT% 4.5 % (0-1); LYMPH # 0.6 (1.0-4.8); LYMPH % 6.3 % (15-45); MEAN CELL VOLUME 89.1 fl (80.0-94.0); MEAN CORPUSCULAR HEMOGLOBIN 29.4 pg (27.0-31.0); MEAN PLATELET VOLUME 9.7 fl (7.4-10.4); NEUT % 77.4 % (43-75); PLATELET COUNT 207 K/mm3 (130-400); RED CELL DISTRIBUTION WIDTH 12.7 % (11.5-14.5)
[2016-02-25 06:43] LABS: ALB/GLOB RATIO 1.4 (>1.0)
[2016-02-25 07:15] LABS: CALCIUM 8.2 mg/dL (8.6-10.3)
[2016-02-25 07:34] VITALS: BP 131/76
[2016-02-25] MEDS: MORPHINE SULFATE 2 MG/ML SYRINGE IV PRN (07:45)
--- NOTE | 2016-02-25 08:32 | PDOC43 ---
- Subjective Chief Complaint: shortness of breath pt was on bipap some yesterday due to dyspnea, but today, reports sleeping well and eager to go home. Reports baseline activity tolerance. Tolerated bipap last night well. - Objective Vital Signs Temperature 97.8 F 02/25/16 07:00 Pulse Rate 79 02/25/16 07:00 Respiratory Rate 22 02/25/16 07:00 Blood Pressure 131/76 02/25/16 07:00 O2 Saturation by Pulse Oximetry 92 02/25/16 07:00 Oxygen Delivery Method Nasal Cannula Oxygen Flow Rate 4 Vital Signs Last 12 Hours Temp Pulse Resp BP Pulse Ox 02/25/16 07:00 97.8 F 79 22 131/76 92 02/25/16 04:00 20 02/25/16 02:44 97.9 F 90 22 135/85 92 02/25/16 00:22 89 95 02/25/16 00:00 22 02/24/16 23:19 97.7 F 96 22 136/92 95 02/24/16 23:05 100 20 92 Intake and Output 02/23/16 02/24/16 02/25/16 23:59 23:59 23:59 Intake Total 2320 1200 400 Output Total 2600 1065 300 Balance -280 135 100 General: Alert, Cooperative, Other (looks much improved today.), No Acute Distress HEENT: Atraumatic Lungs: Diminished at Bases, Other (air diminished bilat, coarse breath sounds bilat.) Cardiovascular: Regular Rate and Rhythm Abdomen: Soft, Normal Bowel Sounds, Non-Distended Extremities: No Edema Skin: Normal Color Neurological: Normal Speech Psych/Mental Status: Normal Affect Laboratory 02/25/16 05:22 02/25/16 05:22 02/25/16 05:22 RBC 4.39 L Estimated GFR 110 H Calcium 8.2 L AST 41 H ALT 115 H Total Protein 5.2 L Albumin 3.0 L Globulin 2.2 L % Immature Granulocyt 4.[address] chest 02/24: IMPRESSION: 1. Minor subpleural opacity within the right lower lobe which could reflect a small focus of pneumonia versus atelectasis. 2. The opacity within the right upper lobe described on plain radiographs is related to artifact (rather than airspace disease/pneumonia), secondary to combination of overlying vascular structures related to rotation on the exam and the asymmetric lucency within the left lung secondary to bullous changes. 3. Incompletely visualized abdominal aortic aneurysm which measures at least 5.0 cm in diameter. 4. Severe emphysema with asymmetric bullous changes on the left. Pulmonary artery hypertension is noted. 5. Chronic compression fractures T6-T8. Current Medications: Current meds reviewed in EMR. Active Medications Albuterol Sulfate (Ventolin Inhalation Solution (Dose)) 2.5 mg NEB Q1H PRN PRN Reason: Wheezing Albuterol/Ipratropium (Duoneb) 3 ml NEB 08,12,16,20 [facility] Last Admin: 02/24/16 19:17 Dose: 3 ml Amoxicillin/Clavulanate Potassium (Augmentin-875) 1 each PO BID [facility] Last Admin: 02/24/16 20:35 Dose: 1 each Benzocaine/Menthol (Cepacol) 1 each PO Q2H PRN PRN Reason: Sore Throat Benzonatate (Tessalon Perles) 200 mg PO TID PRN PRN Reason: Cough Bisacodyl (Dulcolax) 5 mg PO DAILY PRN PRN Reason: Constipation Docusate Sodium (Colace) 100 mg PO DAILY [facility] Enoxaparin Sodium (Lovenox) 40 mg SUB-Q Q24H [facility] Last Admin: 02/24/16 14:58 Dose: 40 mg Guaifenesin (Mucinex) 600 mg PO BID [facility] Last Admin: 02/24/16 20:35 Dose: 600 mg Levofloxacin (Levaquin) 750 mg PO DAILY [facility] Lorazepam (Ativan) 0.5 mg PO Q6H PRN PRN Reason: Anxiety Last Admin: 02/25/16 02:44 Dose: 0.5 mg Losartan Potassium (Cozaar) 100 mg PO DAILY [facility] Magnesium Hydroxide (Milk Of Magnesia) 30 ml PO DAILY PRN PRN Reason: Constipation Morphine Sulfate (Morphine Sulfate) 2 mg IV Q2H PRN PRN Reason: Dyspnea Last Admin: 02/25/16 07:45 Dose: 2 mg Pantoprazole Sodium (Protonix) 40 mg PO Q24H [facility] Petrolatum/Paraffin/Mineral Oil (Blistex) 1 each TP PRN PRN PRN Reason: Dry and/or chapped lips Potassium Chloride (K-Dur) 10 meq PO DAILY [facility] Fluticasone/Salmeterol (Advair 500/50 Diskus) 1 puff IH BID [facility] Last Admin: 02/24/16 20:35 Dose: 1 puff Sodium Chloride (Normal Saline 10ml Flush) 10 ml IV Q8HR [facility] Last Admin: 02/25/16 04:50 Dose: Not Given Sodium Chloride (Normal Saline 10ml Flush) 10 - 50 ml IV PRN PRN Last Admin: 02/25/16 07:44 Dose: 10 ml Tiotropium [place] (Spiriva Handihaler) 1 cap IH DAILY [facility] - Problems: Assessment/Plan (1) Pneumonia Qualifiers: Pneumonia type: due to unspecified organism Laterality: bilateral Lung location: unspecified part of lung Qualifier Code: (J18.9) Pneumonia, unspecified organism Status: Acute Assessment/Plan: POA, presumed bacterial with acute on chronic respiratory failure. Community acquired in context of advance O2 and prednisone dependent COPD. CT brings diagnosis into question somewhat. abx revised to Zosyn/Levaquin on 02/20/16. All cx negative. Now on on oral augmentin and oral levaquin with PO prednisone [facility] with chronic ground glass opacities in R lung felt to be d/t atypical pna and/or aspiration. Had extensive pulm workup in 08/24 including Bronch/BAL. Appears to be doing well, anticipate DC to home today. (2) Respiratory failure Qualifiers: Chronicity: acute on chronic Status: Acute Assessment/Plan: Acute on chronic. Severe bullous emphysema with baseline O2 need 3 liters home oxygen use at rest and 4-5 with any exertion. Pulmonary hypertension noted on CT as well. Considering return to IMCU status for possible resumption of Bipap Anxiety also playing a role in respiratory status, consider further ativan/ morphine. Previous BNP and troponin normal. Improved, pt would like to go home today (02/24). Suggested pt could consider bipap for night time use, pt tolerated well. (3) COPD (chronic obstructive pulmonary disease) Qualifiers: COPD type: unspecified COPD Qualifier Code: (J44.9) Chronic obstructive pulmonary disease, unspecified Status: Chronic Assessment/Plan: Severe bullous emphysema with baseline home oxygen use as above and steroid dependent as well. (4) HTN (hypertension) Qualifiers: Hypertension type: essential hypertension Qualifier Code: (I10) Essential (primary) hypertension Status: Chronic Assessment/Plan: BP markedly elevated despite increased dose of Vasotec, suspect due to mineralocorticoid effect of high dose steroids, changed to PO prednisone, added Norvasc BP doing well today (5) Hiatal hernia with GERD Status: Chronic Assessment/Plan: Stable, PPI for steroid use. VTE Prophylaxis: Lovenox. Disposition: hope to return to home today
[2016-02-25] MEDS: FLUTICASONE/SALMETEROL 500/50 14 PUFFS/DISK IH SCH (08:43)
[2016-02-25] MEDS: AMOX 875 MG/CLAV 125 MG 1 EACH TABLET PO SCH (08:45)
[2016-02-25] MEDS: GUAIFENESIN 600 MG TABLET.DR PO SCH (08:45)
[2016-02-25] MEDS ORDERED: TIOTROPIUM BROMIDE 18 MCG 5 CAP/INHALER IH SCH ×2 (09:00)
[2016-02-25] MEDS ORDERED: DOCUSATE SODIUM 100 MG CAPSULE PO SCH (09:00)
[2016-02-25] MEDS ORDERED: LOSARTAN POTASSIUM 50 MG TABLET PO SCH (09:00)
[2016-02-25] MEDS ORDERED: FLUTICASONE/SALMETEROL 500/50 14 PUFFS/DISK IH SCH (09:00)
[2016-02-25] MEDS ORDERED: POTASSIUM CHLORIDE 10 MEQ TAB.SR PO SCH (09:00)
[2016-02-25] MEDS ORDERED: PANTOPRAZOLE 40 MG TABLET DR PO SCH (09:00)
[2016-02-25] MEDS ORDERED: LEVOFLOXACIN 750 MG TABLET PO SCH (09:00)
--- NOTE | 2016-02-25 11:10 | DS ---
Emiliano Garcia [id number] DATE OF ADMISSION: 02/17/2016 DATE OF DISCHARGE: 02/25/2016 DISCHARGE DIAGNOSES: 1. Suspected community acquired pneumonia. 2. Acute on chronic respiratory failure with hypoxia and hypercapnia noted. 3. Severe emphysema. 4. Pulmonary artery hypertension is noted. 5. Abdominal aortic aneurysm measuring at least 5 cm in diameter seen on CT. 6. Chronic compression fractures T6-T8. 7. Hypertension. 8. Hiatal hernia with gastroesophageal reflux disease. REASON FOR ADMISSION: The patient is a 75-year-old male with advanced chronic obstructive pulmonary disease on home oxygen and chronic steroid therapy presented to [facility] for a two day history of cough, fever, malaise, and dyspnea. In the emergency department he was stabilized and as he received positive pressure ventilation in the field with Bi-PAP and by arrival at the hospital he was 93% saturation on there with a heart rate to 131 and a respiratory rate of 47 beats per minute and a temperature to 103. Evaluation suggested pneumonia and was referred to the hospitalist service. He was admitted to the intensive care unit due to concerns about need for Bi-PAP therapy and he received sedation with lorazepam and Fentanyl. His admission labs showed a white blood cell count of 8.1, hemoglobin 13.9, platelets 179, lactate 0.9. Venous pH 7.435., pCO2 of 41.9, PO2 of 39, bicarbonate 27.5. Sodium 130, potassium 4.4, creatinine 0.8, calcium 9.2, magnesium 1.7. Liver enzymes normal. Troponin less than 0.01, CK-MB 1.0, BNP of 9. Urinalysis was grossly unremarkable and influenza testing was negative. Initial chest x-ray had shown bilateral infiltrates greater on the right than the left. Patient was started on Rocephin and Zithromax. Started on a Bi-PAP. Received Ativan for sedation and Lovenox for venous thromboembolism prophylaxis. He also received Protonix for gastritis prophylaxis and steroids in the form of Solu-Medrol. He was given DuoNeb scheduled treatments and albuterol if needed. Patient had a T-max of 103.2 on admission, but it defervesced after that. He had a gradual improvement, but continued on Bi-PAP with a modest set back on February 23. CT of the chest was done to clarify status, it showed minor subpleural opacity within the right lower lobe which could reflect a small focus of pneumonia versus atelectasis, an opacity in the right upper lobe described on plain radiographs as related to artifact rather than airspace disease or pneumonia secondary to a combination of overlying vascular structures and asymmetric lucency in the left lung secondary to bolus changes, completely abdominal aortic aneurysm measuring at least 5 cm in diameter, severe emphysema with asymmetric bolus changes on the left, pulmonary artery hypertension is noted, chronic compression fractures T6 through T8. The patient had revision of his antibiotics, initially Zosyn and Levaquin on 02/20/2016 and then switched to Augmentin and Levaquin with by mouth prednisone later. He had hypertension and was on Vasotec, but then this was revised to losartan. By 02/25/2016 he was feeling better and appeared to be at baseline status. He was maintaining a saturation of 92% on 4 liters and afebrile, pulse 79, blood pressure 131/76. DISCHARGE MEDICATIONS: He is anticipated to be discharged to home with: 1. Albuterol neb every 1 hour as needed or Ventolin 1 to 2 puffs inhaled every 4 hours as needed. 2. DuoNeb inhaled four times daily. 3. Augmentin 1 by mouth twice daily x7 more days. 4. Tessalon Perles 200 mg by mouth three times daily as needed. 5. Symbicort inhaler 2 puffs inhaled twice daily. 6. Guaifenesin 1200 mg by mouth twice daily. 7. Levofloxacin 750 mg by mouth daily for 7 more days. 8. Lorazepam 0.5 mg by mouth every 6 hours as needed. 9. Losartan 100 mg by mouth daily. 10. Potassium chloride 10 mEq by mouth daily. 11. Prednisone 30 mg by mouth daily tapering over the next 25 days and then return to 5 mg at baseline. 12. Ranitidine 150 mg by mouth twice daily. 13. Spiriva one puff inhaled daily. 14. Trazodone 50 mg at bedtime as needed. FOLLOW UP: [facility] he may discuss with them whether a Bi-PAP would be a choice for him. He had already received extensive pulmonary evaluation and canales a follow up appointment scheduled with them. He may also wish to discuss with them if he would prefer to be on hospice due to his advanced end stage lung disease. DIET: As tolerated. ACTIVITY: As tolerated. Paper work was completed for him to have a home nebulizer for rental in the meantime. Patient had improvement in activity tolerance. He would desaturate down to 84% while ambulating on 4 liters, but had rapid recovery on resting. 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
[2016-02-25] MEDS: ALBUTEROL/IPRATROPIUM 2.5/0.5 MG 3 ML/EACH DOSE NEB SCH (11:11)
== END 2016-02-25 11:50 | disposition home or self-care (01) | DRG 177 ==
LOC: ED 17:38 → ICU 20:08 → MS 02-18 13:40 → ICU 02-19 06:29 → MS 02-21 11:08 → ICU 02-24 18:30
PROVIDERS: ADMIT Family Medicine; ATTEND Family Medicine
DX: J15.6 Pneumonia due to other Gram-negative bacteria (principal); J96.22 Acute and chronic respiratory failure with hypercapnia; J96.21 Acute and chronic respiratory failure with hypoxia; J86.9 Pyothorax without fistula; M84.48XA Pathological fracture, other site, initial encounter for fracture; J18.9 Pneumonia, unspecified organism; Y95 Nosocomial condition; J44.9 Chronic obstructive pulmonary disease, unspecified; Z99.81 Dependence on supplemental oxygen; Z79.52 Long term (current) use of systemic steroids; I71.4 Abdominal aortic aneurysm, without rupture; I10 Essential (primary) hypertension; K44.9 Diaphragmatic hernia without obstruction or gangrene; K21.9 Gastro-esophageal reflux disease without esophagitis